=== PATIENT | female | born 1975 | race Caucasian/White ===

== ENCOUNTER 2024-02-22 13:14 | Day surgery (SDC) | payer OTHER ==
--- NOTE | 2024-02-22 14:11 | US ---
ULTRASOUND GUIDED FNA THYROID BIOPSY: CLINICAL HISTORY: Right thyroid nodule FINDINGS: The procedure was explained to the patient. The risks, complications, benefits and alternatives were discussed and any questions were answered. Informed consent was obtained. Patient was placed supin e on the ultrasound table and prepped and draped in the usual sterile fashion. Utilizing a 25 gauge needle, five passes were made into the requested right thyroid nodule. Patient was stable throughout the procedure. Pathology is pending. All elements of maximal barrier technique were utilized. IMPRESSION: 1. Successful ultrasound guided FNA thyroid biopsy.
== END 2024-02-22 14:20 | disposition home or self-care (01) ==
LOC: RADPROMAIN 13:14
PROVIDERS: ATTEND Internal Medicine
DX: E04.1 Nontoxic single thyroid nodule (principal)
CPT/HCPCS: 10005; 88173; 88305

== ENCOUNTER → 2024-05-02 | Outpatient (CLI) | payer OTHER ==
--- NOTE | 2024-05-02 09:34 | XR ---
EXAMINATION TYPE: XR abdomen complete w decub DATE OF EXAM: 05/02/2024 8:08 AM CLINICAL INDICATION:Female, 49 years old with history of R10.30 lower abdominal pain; COMPARISON: None. TECHNIQUE: Two views of the abdomen were obtained. FINDINGS: Antrostomy pelvis The bowel gas pattern is nonspecific without dilated loops of small or la rge bowel. There is no evidence for organomegaly or pneumoperitoneum. The osseous structures are int act. No abnormal calcifications are present. Fecal material and gas are demonstrated throughout the colon and rectum. IMPRESSION: Large amount stool particularly in the pelvis, otherwise nonspecific bowel gas pattern without radiog raphic evidence for acute process.
== END | disposition home or self-care (01) ==
LOC: RADFLMAIN 07:45
PROVIDERS: ATTEND Internal Medicine Gastroenterology
DX: R10.30 Lower abdominal pain, unspecified (principal)
CPT/HCPCS: 74021